=== PATIENT | female | born 1960 | race Caucasian/White ===

== ENCOUNTER 2019-04-19 13:22 | Emergency (ER) | payer OTHER ==
[~2019-04-19] VITALS: Ht 170.2 cm; Wt 87.0 kg
[2019-04-19 17:06] VITALS: BP 114/83
== END 2019-04-19 17:10 | disposition home or self-care (01) ==
LOC: ED 16:10
DX: I48.91 Unspecified atrial fibrillation (principal); K21.9 Gastro-esophageal reflux disease without esophagitis; I10 Essential (primary) hypertension; Z85.43 Personal history of malignant neoplasm of ovary
CPT/HCPCS: 36415; 71045; 80048; 82040; 84484; 85025; 92960; 93005; 96365; 96375; 96376; 99291; J1160; J2704

== ENCOUNTER 2019-04-22 20:16 | Emergency (ER) | payer OTHER ==
[~2019-04-22] VITALS: Ht 172.7 cm; Wt 85.0 kg
[2019-04-22 23:10] VITALS: BP 161/101
== END 2019-04-22 23:28 | disposition home or self-care (01) ==
LOC: ED 21:59
DX: I10 Essential (primary) hypertension (principal); R51 Headache; K21.9 Gastro-esophageal reflux disease without esophagitis; I48.91 Unspecified atrial fibrillation; E78.5 Hyperlipidemia, unspecified
CPT/HCPCS: 36415; 80048; 85025; 93005; 99284

== ENCOUNTER 2019-06-29 10:09 | Outpatient (CLI) | payer OTHER ==
[~2019-06-29 10:09] MED LIST: ASCO100019 PO; ASPI-496 PO; FISH400C2 PO; GLUC1TAB55 PO; HYDR25TA6 PO; LACT1CAP35 PO; LOSA25TA25 PO; LOVA40TA2 PO; MAGN400T7 PO; MULT-516 PO; OMEP-110 PO; OXYC1TAB8 PO; POTA10TA11 PO; SULF1TAB24 PO; TEMA30CA PO; UBID100C41 PO; magnesium PO
== END 2019-06-29 23:59 | disposition home or self-care (01) ==
LOC: CFH 10:09
PROVIDERS: ATTEND Internal Medicine Cardiovascular Disease
DX: I10 Essential (primary) hypertension (principal); J45.909 Unspecified asthma, uncomplicated; I48.0 Paroxysmal atrial fibrillation; E78.5 Hyperlipidemia, unspecified; E11.9 Type 2 diabetes mellitus without complications; Z87.891 Personal history of nicotine dependence
CPT/HCPCS: 93306

== ENCOUNTER → 2021-04-25 | Outpatient (CLI) | payer OTHER ==
[~2021-04-25] MED LIST changes: -MAGN400T7 PO; +MAGN400T9 PO; +SULF-23 PO; -SULF1TAB24 PO
== END | disposition home or self-care (01) ==
LOC: CFH 11:38
PROVIDERS: ATTEND Internal Medicine Cardiovascular Disease
DX: I10 Essential (primary) hypertension (principal)
CPT/HCPCS: 75571